=== PATIENT | female | born 1985 | race Caucasian/White ===

== ENCOUNTER → 2022-08-15 10:06 | Outpatient (BNVA) | payer BC, SELFPAY | PROVIDERS: PCP Registered Nurse; Visit Provider Registered Nurse | DX: N92.6 Irregular menstruation, unspecified (principal) | CPT/HCPCS: 80053; 82397; 82672; 84403; 84443; 85025; 86376; 86800 ==

== ENCOUNTER → 2023-04-17 09:18 | Outpatient (BNVA) | payer BC, SELFPAY | PROVIDERS: PCP Registered Nurse; Visit Provider Registered Nurse | DX: E06.3 Autoimmune thyroiditis (principal); E53.8 Deficiency of other specified B group vitamins; N92.6 Irregular menstruation, unspecified | CPT/HCPCS: 82607; 84443; 86376 ==